=== PATIENT | female | born 1955 | race Caucasian/White ===

== ENCOUNTER 2019-01-15 08:31 | Day surgery (SDC) | payer MEDICARE, OTHER ==
[~2019-01-15 08:31] MED LIST: Aspir 8181 MG PO; COLE1 PO; Crestor20 MG PO; FLUO20 PO; Hair, Skin & N1 EACH PO; MELO7.5 PO; OMEG1CAP30; Prozac40 MG PO; Vitamin C500 M3 PO
== END 2019-01-15 23:00 | disposition home or self-care (01) ==
LOC: MOI US 08:31
DX: C50.911 Malignant neoplasm of unspecified site of right female breast (principal); Z79.82 Long term (current) use of aspirin; Z79.899 Other long term (current) drug therapy
CPT/HCPCS: 19285; 38505; 77065

== ENCOUNTER 2019-01-24 10:21 | Day surgery (SDC) | payer MEDICARE, OTHER ==
[~2019-01-24] VITALS: Ht 170.2 cm; Wt 94.3 kg
--- NOTE | 2019-01-24 16:59 | NUR ---
01/24/19 [id number] Elicia Graham PT TOLERATED PO INTAKE WELL, SPOUSE AT BEDSIDE THROUGHOUT RECOVERY. PT PROVIDED WITH PAIN RELIEF MEDICATIONS & INTERVENTIONS. PT STATES SHE IS EAGER TO GET HOME & REST IN HER OWN BED. SPOUSE AGREES.
== END 2019-01-24 16:58 | disposition home or self-care (01) ==
LOC: ORSCSDS 10:21 → NM 11:30 → ORSCSDS 11:30
PROVIDERS: Surgery
PROC: 0HBT0ZZ Excision of Right Breast, Open Approach (ICD-10-PCS; principal; 2019-01-24 13:00)
PROC: 07B50ZX Excision of Right Axillary Lymphatic, Open Approach, Diagnostic (ICD-10-PCS; principal; 2019-01-24 13:00)
DX: C50.911 Malignant neoplasm of unspecified site of right female breast (principal); D36.0 Benign neoplasm of lymph nodes; E78.00 Pure hypercholesterolemia, unspecified; F32.9 Major depressive disorder, single episode, unspecified; Z79.899 Other long term (current) drug therapy; Z79.82 Long term (current) use of aspirin
CPT/HCPCS: 76098; 78195; 88307; 88342; A9270-GY; A9520; J0690; J1100; J1885; J2250; J2405; J2704; J3010; J7120; Q9968

== ENCOUNTER → 2020-08-18 | Outpatient (CLI) | payer MEDICARE, OTHER | END | disposition home or self-care (01) | LOC: LAB 11:01 → LAB SHORT 11:01 | DX: D48.5 Neoplasm of uncertain behavior of skin (principal) | CPT/HCPCS: 88305 ==

== ENCOUNTER → 2021-07-29 | Outpatient (CLI) | payer MEDICARE, OTHER | END | disposition home or self-care (01) | LOC: LAB SHORT 14:47 → PLD 14:47 | DX: C44.729 Squamous cell carcinoma of skin of left lower limb, including hip (principal) | CPT/HCPCS: 88305 ==

== ENCOUNTER → 2021-10-01 | Outpatient (CLI) | payer MEDICARE, OTHER | END | disposition home or self-care (01) | LOC: LAB 11:00 → LAB SHORT 11:00 | DX: L08.0 Pyoderma (principal) | CPT/HCPCS: 87070; 87077; 87186; 87205 ==

== ENCOUNTER → 2022-03-24 | Outpatient (CLI) | payer MEDICARE, OTHER | END | disposition home or self-care (01) | LOC: LAB SHORT 12:30 → LAB 12:30 | DX: L01.01 Non-bullous impetigo (principal) | CPT/HCPCS: 87070; 87205 ==

== ENCOUNTER → 2024-11-06 | Outpatient (CLI) | payer MEDICARE, OTHER | END | disposition home or self-care (01) | LOC: LAB SHORT 15:00 → LAB 15:00 | DX: L08.0 Pyoderma (principal) | CPT/HCPCS: 87070; 87077; 87147; 87186; 87205 ==

== ENCOUNTER → 2024-12-03 | Outpatient (CLI) | payer MEDICARE, OTHER | LOC: LAB 11:30 → LAB SHORT 11:30 | DX: L08.0 Pyoderma (principal) | CPT/HCPCS: 87070; 87077; 87147; 87186; 87205 ==